=== PATIENT | male | born 1960 | race African-American/Black ===

== ENCOUNTER 2017-01-03 08:51 | Emergency (ER) | payer OTHER, SELFPAY ==
[2017-01-03] MEDS ORDERED: HYDROcodone/Acetaminophen 10/325 mg Tablet ONE (10:09)
[2017-01-03] MEDS ORDERED: Naproxen 500 MG TAB ONE (10:10)
== END 2017-01-03 10:10 | disposition home or self-care (01) ==
LOC: MADERS 08:51
DX: K40.90 Unilateral inguinal hernia, without obstruction or gangrene, not specified as recurrent (principal); I10 Essential (primary) hypertension; J45.909 Unspecified asthma, uncomplicated
CPT/HCPCS: 99283

== ENCOUNTER 2017-01-13 06:37 | Emergency (ER) | payer OTHER ==
[2017-01-13] MEDS ORDERED: Benzonatate 100 MG CAP ONE (06:59)
[2017-01-13] MEDS ORDERED: Naproxen 500 MG TAB ONE (06:59)
[2017-01-13] MEDS ORDERED: Ondansetron ODT 4 MG TAB ONE (06:59)
[2017-01-13] MEDS ORDERED: HYDROcodone/Acetaminophen 10/325 mg Tablet ONE (06:59)
[2017-01-13 07:29] LABS: Bilirubin Negative (Negative); Blood, Urine Negative (Negative); Clarity Clear (Clear); Glucose, Urine (Dipstick) Negative (Negative); Leukocyte Negative (Negative); Nitrite Negative (Negative); Protein, Urine (Dipstick) Negative (Neg-Trace); Urobilinogen 0.2 mg/dL (0.2-1.0)
[2017-01-13] MEDS ORDERED: predniSONE 20 MG TAB ONE (07:30)
[2017-01-13 07:44] LABS: Bacteria/HPF Rare-Few HPF (None Seen); RBC/HPF 0-3 HPF (0-3); Squamous Epithelial 0-3 HPF (0-3); WBC/HPF 0-3 HPF (0-3)
--- NOTE | 2017-01-13 07:53 | RAD ---
PORTABLE CHEST: HISTORY: Cough. COMPARISON: 09/01/16 study. FINDINGS: The heart size is within normal limits for portable technique. Mediastinal structures are unremarka ble. The lungs are clear of infiltrative process. IMPRESSION: No active intrathoracic disease. Stable chest. POS: [facility]
== END 2017-01-13 07:58 | disposition home or self-care (01) ==
LOC: MADERS 06:37
DX: J45.909 Unspecified asthma, uncomplicated (principal); R30.0 Dysuria; I10 Essential (primary) hypertension
CPT/HCPCS: 71010; 81003; 81015; 87086; 94640; J7506; J7620; Q0162

== ENCOUNTER 2017-02-22 06:39 | Emergency (ER) | payer OTHER, SELFPAY ==
[2017-02-22] MEDS ORDERED: Ondansetron ODT 4 MG TAB ONE (07:17)
[2017-02-22] MEDS ORDERED: traMADol HCl 50 MG TAB ONE ×2 (07:17)
--- NOTE | 2017-02-22 08:12 | RAD ---
EXAM: ONE VIEW PELVIS: HISTORY: Fell from a tall ladder last night. Posttraumatic pain. FINDINGS: Sacroiliac joints are patent and symmetric. Sacral alae are preserved. Bony pelvis is intact. Sym metric hip joints. Contour of the left and right femoral head are maintained on the single projecti on. No fracture. IMPRESSION: No fracture. POS: [facility]
--- NOTE | 2017-02-22 08:13 | RAD ---
EXAM: RIGHT HIP 2 VIEWS: HISTORY: The patient fell from a ladder. Posttraumatic injury. Pain. FINDINGS: Contour of the right femoral head is maintained. Joint space is preserved. No fracture. IMPRESSION: No fracture. POS: [facility]
--- NOTE | 2017-02-22 08:15 | RAD ---
LUMBAR SPINE 3 VIEWS: HISTORY: Fall from a tall ladder last night. Posttraumatic pain. COMPARISON: None. FINDINGS: Five lumbar-type vertebral bodies. Mild loss of disk space height at L1-L2. There appears to be gr kimber I retrolisthesis of L1 upon L2. Vertebral body heights are maintained. No fracture. Mild degenerative change of the lower thoracic spine. IMPRESSION: 1. Mild degenerative change as above. 2. Nonspecific grade I retrolisthesis of L1 upon L2. Correlate clinically. CODE T POS: [facility]
== END 2017-02-22 07:45 | disposition home or self-care (01) ==
LOC: MADERS 06:39
DX: S33.5XXA Sprain of ligaments of lumbar spine, initial encounter (principal); M62.830 Muscle spasm of back; J45.909 Unspecified asthma, uncomplicated; I10 Essential (primary) hypertension; Z87.891 Personal history of nicotine dependence; W11.XXXA Fall on and from ladder, initial encounter
CPT/HCPCS: 72100; 72170; Q0162

== ENCOUNTER 2017-03-04 00:29 | Emergency (ER) | payer SELFPAY ==
[2017-03-04] MEDS ORDERED: Sulfameth/Trimethoprim DS 800-160mg TAB ONE (03:14)
[2017-03-04] MEDS ORDERED: Naproxen 500 MG TAB ONE (03:14)
[2017-03-04] MEDS ORDERED: HYDROcodone/Acetaminophen 10/325 mg Tablet ONE (03:14)
[2017-03-04] MEDS ORDERED: Cephalexin 500 MG CAP ONE (03:14)
== END 2017-03-04 03:19 | disposition home or self-care (01) ==
LOC: MADERS 00:29
DX: L02.31 Cutaneous abscess of buttock (principal); I10 Essential (primary) hypertension; J45.909 Unspecified asthma, uncomplicated; Z79.899 Other long term (current) drug therapy
CPT/HCPCS: 99282

== ENCOUNTER 2017-04-29 08:57 | Emergency (ER) | payer OTHER ==
[2017-04-29 09:55] LABS: Bilirubin Negative (Negative); Blood, Urine Negative (Negative); Clarity Clear (Clear); Glucose, Urine (Dipstick) Negative (Negative); Leukocyte Negative (Negative); Nitrite Negative (Negative); Protein, Urine (Dipstick) Negative (Neg-Trace); Urobilinogen 0.2 mg/dL (0.2-1.0)
--- NOTE | 2017-04-29 10:33 | RAD ---
CHEST 1 VIEW ABDOMEN 2 VIEWS: Date: 04/29/17 HISTORY: Constipation. Abdomen pain. FINDINGS: The cardiac silhouette and pulmonary vasculature are unremarkable. Lungs are hyperinflated. There is no confluent air space consolidation or evidence of free subdiaphragmatic gas. Nipple shadow overli es the right base. Moderate amount of stool is present throughout the colon and rectum. Nondilated gas-filled loops of small bowel are present throughout the abdomen. There are no differential air fluid levels or eviden ce of free intraperitoneal gas. Phleboliths project over the pelvis. IMPRESSION: 1. COPD. 2. Nonspecific bowel gas pattern. POS: [facility]
== END 2017-04-29 11:05 | disposition home or self-care (01) ==
LOC: MADERS 08:57
DX: K59.00 Constipation, unspecified (principal); I10 Essential (primary) hypertension; J45.909 Unspecified asthma, uncomplicated
CPT/HCPCS: 74022; 81003

== ENCOUNTER 2017-06-07 08:40 | Emergency (ER) | payer MEDICAID ==
[2017-06-07] MEDS ORDERED: HYDROcodone/Acetaminophen 10/325 mg Tablet ONE (09:00)
[2017-06-07] MEDS ORDERED: Cyclobenzaprine 10 MG TAB ONE (09:00)
[2017-06-07] MEDS ORDERED: Acetaminophen 325 MG TAB ONE ×2 (09:03)
== END 2017-06-07 09:21 | disposition home or self-care (01) ==
LOC: MADERS 08:40
DX: S30.0XXA Contusion of lower back and pelvis, initial encounter (principal); S30.1XXA Contusion of abdominal wall, initial encounter; I10 Essential (primary) hypertension; J45.909 Unspecified asthma, uncomplicated; W18.30XA Fall on same level, unspecified, initial encounter
CPT/HCPCS: 99283

== ENCOUNTER 2017-07-01 14:33 | Emergency (ER) | payer MEDICAID ==
[2017-07-01] MEDS ORDERED: HYDROcodone/Acetaminophen 10/325 mg Tablet ONE (15:14)
== END 2017-07-01 15:20 | disposition home or self-care (01) ==
LOC: MADERS 14:33
DX: K40.90 Unilateral inguinal hernia, without obstruction or gangrene, not specified as recurrent (principal); I10 Essential (primary) hypertension; J45.909 Unspecified asthma, uncomplicated; Z79.891 Long term (current) use of opiate analgesic
CPT/HCPCS: 99283

== ENCOUNTER 2017-09-08 10:21 | Emergency (ER) | payer OTHER ==
[2017-09-08] MEDS ORDERED: traMADol HCl 50 MG TAB ONE (10:47)
== END 2017-09-08 10:50 | disposition home or self-care (01) ==
LOC: MADERS 10:21
DX: M10.9 Gout, unspecified (principal); I10 Essential (primary) hypertension; J45.909 Unspecified asthma, uncomplicated
CPT/HCPCS: 99283

== ENCOUNTER 2017-09-20 20:37 | Emergency (ER) | payer OTHER ==
[2017-09-20] MEDS ORDERED: HYDROcodone/Acetaminophen 10/325 mg Tablet ONE (21:14)
[2017-09-20] MEDS ORDERED: Dexamethasone 4 MG TAB ONE (21:14)
[2017-09-20] MEDS ORDERED: Ibuprofen 800 MG TAB ONE (21:14)
== END 2017-09-20 21:20 | disposition home or self-care (01) ==
LOC: MADERS 20:37
DX: M25.522 Pain in left elbow (principal); G89.29 Other chronic pain; I10 Essential (primary) hypertension; J45.909 Unspecified asthma, uncomplicated; M10.9 Gout, unspecified
CPT/HCPCS: 99283; J8540

== ENCOUNTER 2017-11-24 08:20 | Emergency (ER) | payer MEDICAID | END 2017-11-24 09:15 | disposition home or self-care (01) | LOC: MADERS 08:20 | DX: J11.1 Influenza due to unidentified influenza virus with other respiratory manifestations (principal); I10 Essential (primary) hypertension; J45.909 Unspecified asthma, uncomplicated; M10.9 Gout, unspecified | CPT/HCPCS: 99283 ==

== ENCOUNTER 2018-05-18 08:22 | Emergency (ER) | payer MEDICAID ==
[2018-05-18] MEDS ORDERED: Metoclopramide HCl 10 MG/2 ML VIAL ONE (08:50)
[2018-05-18] MEDS ORDERED: Ondansetron ODT 4 MG TAB ONE (08:50)
[2018-05-18] MEDS ORDERED: diphenhydrAMINE 50 MG/ML VIAL ONE (08:50)
[2018-05-18] MEDS ORDERED: Ketorolac Tromethamine 30 MG/ML VIAL ONE (08:50)
[2018-05-18] MEDS ORDERED: Sodium Chloride 0.9% 1,000 ML BAG ONE (09:04)
[2018-05-18 09:07] LABS: #Basophils 0.1 thou/uL (0.0-0.2); #Eosinphils 0.2 thou/uL (0.0-0.7); #Lymphocytes 0.8 thou/uL (1.20-3.40); #Monocytes 0.4 thou/uL (0.11-0.59); #Neutrophils 4.4 thou/uL (1.40-6.50); %Basophils 1.9 % (0.0-1.0); %Eosinophils 2.7 % (0.0-10.0); %Lymphocytes 14.3 % (21.0-51.0); %Monocytes 6.8 % (0.0-10.0); %Neutrophils 74.3 % (42.0-75.0); Hemoglobin 14.1 g/dL (14.0-18.0); Mean Corpuscular HGB CONC 31.9 g/dL (32.0-36.0); Mean Corpuscular Hemoglobin 28.2 pg (27.0-31.0); Mean Corpuscular Volume 88.3 fL (78.0-98.0); Mean Platelet Volume 9.1 fL (7.4-10.4); Platelet Count 143 thou/uL (130-400); RBC Distribution Width 12.9 % (11.5-14.5); White Blood Cell (WBC) Count 5.9 thou/uL (4.8-10.8)
[2018-05-18] MEDS ORDERED: Metoclopramide HCl 10 MG TAB ONE (09:08)
[2018-05-18 09:23] LABS: ALT (SGPT) 13 U/L (8-55); AST (SGOT) 13 U/L (5-34); Albumin 3.5 g/dL (3.5-5.0); Alkaline Phosphatase 95 U/L (40-150); Anion Gap 14 mmol/L (10-20); BUN (Urea Nitrogen) 9 mg/dL (8.4-25.7); Bilirubin, Total 0.6 mg/dL (0.2-1.2); Calc. Creatinine Clearance 0 mL/min (70-130); Calcium 8.7 mg/dL (7.8-10.44); Estimated GFR-MDRD Greater than 90; Glucose 88 mg/dL (70-105); Protein, Total 6.5 g/dL (6.0-8.3)
[2018-05-18 09:54] LABS: Carbon Dioxide 24 mmol/L (22-29); Chloride 107 mmol/L (98-107); Sodium 141 mmol/L (136-145)
== END 2018-05-18 10:45 | disposition home or self-care (01) ==
LOC: MADERS 08:22
DX: R51 Headache (principal); M10.9 Gout, unspecified; J45.909 Unspecified asthma, uncomplicated; I10 Essential (primary) hypertension
CPT/HCPCS: 80053; 85025; 96361; 96374; 96375; J1200; J1885; J2765; J7050; Q0162

== ENCOUNTER 2018-10-06 08:45 | Outpatient (CLI) | payer OTHER | END 2018-10-06 08:46 | disposition home or self-care (01) | LOC: MADRAD 08:45 | PROVIDERS: ATTEND Family Medicine | DX: I10 Essential (primary) hypertension (principal) ==

== ENCOUNTER 2018-12-11 10:36 | Emergency (ER) | payer BC, OTHER ==
[2018-12-11] MEDS ORDERED: Ibuprofen 800 MG TAB ONE (11:29)
[2018-12-11] MEDS ORDERED: Cyclobenzaprine 10 MG TAB ONE (11:29)
== END 2018-12-11 11:55 | disposition home or self-care (01) ==
LOC: MADERS 10:36
DX: M54.2 Cervicalgia (principal); I10 Essential (primary) hypertension; J45.909 Unspecified asthma, uncomplicated; M10.9 Gout, unspecified; Z79.899 Other long term (current) drug therapy; Z79.51 Long term (current) use of inhaled steroids
CPT/HCPCS: 93005

== ENCOUNTER 2018-12-21 08:13 | Outpatient (CLI) | payer BC, OTHER ==
--- NOTE | 2018-12-21 09:33 | RAD ---
CERVICAL SPINE 4 VIEWS: HISTORY: Cervicalgia. COMPARISON: None. FINDINGS: No acute fracture or malalignment. There is multilevel air in the disk spaces from C3-C7 with anteri or and posterior disk-osteophyte complexes. There is height loss of the anterior superior C3 vertebral body. There is narrowing of the bilateral C3-C5 neural foramina due to primarily posterior disk-osteophyte complexes and uncinate process hype rtrophy. The mandible is intact. Open mouth odontoid view appears normal. IMPRESSION: Moderate degenerative disease centered at C3-C5. POS: [facility]
== END 2018-12-21 08:14 | disposition home or self-care (01) ==
LOC: MADRAD 08:13
PROVIDERS: ATTEND Family Medicine
DX: M54.2 Cervicalgia (principal); M50.31 Other cervical disc degeneration, high cervical region
CPT/HCPCS: 72050

== ENCOUNTER 2019-03-31 14:30 | Emergency (ER) | payer OTHER ==
[~2019-03-31 14:30] MED LIST: Iopamidol 370 76% 200 ML VIAL ONE; Sodium Chloride 0.9% 100 ML BAG ONE
--- NOTE | 2019-03-31 15:07 | RAD ---
Portable chest: HISTORY: Syncope COMPARISON: none FINDINGS: Lung kohler are clear. Heart and mediastinum appear unremarkable. Vascularity is normal. Visualized osseous structures unremarkable. IMPRESSION: No acute finding
[2019-03-31 15:13] LABS: #Basophils 0.1 thou/uL (0.0-0.2); #Eosinphils 0.1 thou/uL (0.0-0.7); #Lymphocytes 1.3 thou/uL (1.20-3.40); #Monocytes 0.6 thou/uL (0.11-0.59); #Neutrophils 3.6 thou/uL (1.40-6.50); %Basophils 2.2 % (0.0-1.0); %Eosinophils 1.1 % (0.0-10.0); %Lymphocytes 22.2 % (21.0-51.0); %Monocytes 11.1 % (0.0-10.0); %Neutrophils 63.4 % (42.0-75.0); Hemoglobin 14.7 g/dL (14.0-18.0); Mean Corpuscular HGB CONC 32.3 g/dL (32.0-36.0); Mean Corpuscular Volume 89.9 fL (78.0-98.0); Mean Platelet Volume 9.2 fL (7.4-10.4); Platelet Count 181 thou/uL (130-400); RBC Distribution Width 12.4 % (11.5-14.5); Red Blood Cell (RBC) Count 5.06 mill/uL (4.70-6.10); White Blood Cell (WBC) Count 5.7 thou/uL (4.8-10.8)
[2019-03-31 15:31] LABS: ALT (SGPT) 14 U/L (8-55); AST (SGOT) 15 U/L (5-34); Albumin 3.9 g/dL (3.5-5.0); Alkaline Phosphatase 76 U/L (40-150); Anion Gap 13 mmol/L (10-20); BUN (Urea Nitrogen) 16 mg/dL (8.4-25.7); Bilirubin, Total 1.5 mg/dL (0.2-1.2); Calc. Creatinine Clearance 0 mL/min (70-130); Calcium 8.4 mg/dL (7.8-10.44); Carbon Dioxide 22 mmol/L (22-29); Chloride 111 mmol/L (98-107); Estimated GFR-MDRD 61; Globulin 2.9 g/dL (2.4-3.5); Glucose 89 mg/dL (70-105); Magnesium 2.3 mg/dL (1.6-2.6); Potassium 3.5 mmol/L (3.5-5.1); Protein, Total 6.8 g/dL (6.0-8.3); Sodium 142 mmol/L (136-145)
--- NOTE | 2019-03-31 15:58 | CT ---
CT head without contrast: Multiple axial tomograms obtained through the head without IV enhancement. INDICATIONS: Syncope COMPARISON: None FINDINGS: Ventricles have normal size and position. No evidence of intracranial mass, hemorrhage, edema, or infarct. Visualized sinuses and mastoids appear clear. Bony calvarium appears unremarkable. IMPRESSION: No acute finding
--- NOTE | 2019-03-31 16:03 | CT ---
CTA chest with contrast: Multiple axial tomograms obtained through the chest following a pulmonary angiogram protocol with mul tiplanar reconstruction and 3-D postprocessing. INDICATIONS: Dyspnea and chest pain. Assess for pulmonary embolus. Syncope COMPARISON: None FINDINGS: Pulmonary arteries show adequate opacification. No evidence of pulmonary embolus identified. Thoracic aorta is unremarkable. No evidence of dissection. Mediastinum appears unremarkable. No adenopathy. Lung kohler show no evidence of infiltrate. There are chronic lung parenchymal changes. Interstitial thickening is prominent in the lung bases. Images through the upper abdomen appear unremarkable. Soft tissues of the thorax appear unremarkable. Osseous structures of the thorax appear unremarkable. IMPRESSION: 1. No evidence of pulmonary embolus 2. No acute lung process.
== END 2019-03-31 17:04 | disposition left against medical advice (07) ==
LOC: MADERS 14:30
DX: I45.81 Long QT syndrome (principal); N17.9 Acute kidney failure, unspecified; E87.70 Fluid overload, unspecified; I10 Essential (primary) hypertension; J45.909 Unspecified asthma, uncomplicated; M10.9 Gout, unspecified; F32.9 Major depressive disorder, single episode, unspecified; Z79.899 Other long term (current) drug therapy; Z79.51 Long term (current) use of inhaled steroids
CPT/HCPCS: 36415; 70450; 71045; 71275; 80053; 83735; 83880; 84443; 84484; 85025; 93005; J3490

== ENCOUNTER 2019-04-07 12:09 | Emergency (ER) | payer OTHER ==
[2019-04-07] MEDS ORDERED: diphenhydrAMINE 50 MG/ML VIAL ONE (12:29)
== END 2019-04-07 12:57 | disposition home or self-care (01) ==
LOC: MADERS 12:09
DX: L29.9 Pruritus, unspecified (principal); I10 Essential (primary) hypertension; J45.909 Unspecified asthma, uncomplicated; M10.9 Gout, unspecified; F32.9 Major depressive disorder, single episode, unspecified; Z79.899 Other long term (current) drug therapy; Z79.51 Long term (current) use of inhaled steroids
CPT/HCPCS: 96374; J1200

== ENCOUNTER 2019-04-27 09:00 | Outpatient (CLI) | payer OTHER ==
--- NOTE | 2019-04-27 09:24 | RAD ---
EXAM: 3 views of the right shoulder HISTORY: Shoulder pain COMPARISON: None FINDINGS: There is no evidence of acute fracture or dislocation. No degenerative changes are present. No soft tissue swelling is seen. The visualized thorax is unremarkable. IMPRESSION: No evidence of acute osseous abnormality.
== END 2019-04-27 09:01 | disposition home or self-care (01) ==
LOC: MADRAD 09:00
PROVIDERS: ATTEND Family Medicine
DX: M25.511 Pain in right shoulder (principal)

== ENCOUNTER 2019-05-29 11:49 | Emergency (ER) | payer OTHER ==
[2019-05-29] MEDS ORDERED: Phenazopyridine HCl 97.5 MG TABLET ONE (12:19)
[2019-05-29] MEDS ORDERED: Nitrofurantoin Monohyd/M-Cryst 100 MG CAP ONE (12:19)
[2019-05-29 12:20] LABS: Clarity Hazy (Clear)
[2019-05-29 12:22] LABS: Glucose, Urine (Dipstick) Unable to Interpret mg/dL (Negative); Leukocyte Unable to Interpret (Negative); Nitrite Unable to Interpret (Negative); Protein, Urine (Dipstick) Unable to Interpret mg/dL (Neg-Trace)
[2019-05-29 12:23] LABS: Bilirubin Unable to Interpret (Negative); Blood, Urine Large (Negative); RBC/HPF Greater than 50 HPF (0-3)
[2019-05-29 12:24] LABS: Bacteria/HPF Rare-Few HPF (None Seen); Squamous Epithelial 0-3 HPF (0-3)
== END 2019-05-29 12:53 | disposition home or self-care (01) ==
LOC: MADERS 11:49
DX: N30.01 Acute cystitis with hematuria (principal); I10 Essential (primary) hypertension; J45.909 Unspecified asthma, uncomplicated; M10.9 Gout, unspecified; F32.9 Major depressive disorder, single episode, unspecified; Z79.899 Other long term (current) drug therapy; Z79.51 Long term (current) use of inhaled steroids
CPT/HCPCS: 81003; 81015; 87086; 99283

== ENCOUNTER 2019-07-28 00:06 | Emergency (ER) | payer OTHER ==
[2019-07-28] MEDS ORDERED: Nitroglycerin 0.4 MG TAB 1 EACH ONE (00:21)
[2019-07-28 00:42] LABS: #Basophils 0.1 thou/uL (0.0-0.2); #Eosinphils 0.2 thou/uL (0.0-0.7); #Lymphocytes 1.3 thou/uL (1.20-3.40); #Monocytes 0.5 thou/uL (0.11-0.59); #Neutrophils 2.8 thou/uL (1.40-6.50); %Basophils 2.2 % (0.0-1.0); %Eosinophils 3.6 % (0.0-10.0); %Lymphocytes 26.4 % (21.0-51.0); %Monocytes 9.4 % (0.0-10.0); %Neutrophils 58.4 % (42.0-75.0); Hemoglobin 12.9 g/dL (14.0-18.0); Mean Corpuscular HGB CONC 32.8 g/dL (32.0-36.0); Mean Corpuscular Hemoglobin 29.2 pg (27.0-31.0); Mean Platelet Volume 8.6 fL (7.4-10.4); Platelet Count 132 thou/uL (130-400); RBC Distribution Width 13.5 % (11.5-14.5); Red Blood Cell (RBC) Count 4.42 mill/uL (4.70-6.10); White Blood Cell (WBC) Count 4.8 thou/uL (4.8-10.8)
[2019-07-28 00:53] LABS: ALT (SGPT) 18 U/L (8-55); AST (SGOT) 14 U/L (5-34); Alkaline Phosphatase 101 U/L (40-150); Anion Gap 12 mmol/L (10-20); BUN (Urea Nitrogen) 12 mg/dL (8.4-25.7); Bilirubin, Total 0.4 mg/dL (0.2-1.2); Calc. Creatinine Clearance 0 mL/min (70-130); Calcium 8.7 mg/dL (7.8-10.44); Carbon Dioxide 26 mmol/L (22-29); Chloride 105 mmol/L (98-107); Estimated GFR-MDRD 89; Globulin 2.7 g/dL (2.4-3.5); Glucose 108 mg/dL (70-105); Protein, Total 6.7 g/dL (6.0-8.3); Sodium 139 mmol/L (136-145)
--- NOTE | 2019-07-28 09:12 | RAD ---
AP CHEST: Date: 07/28/19 INDICATION: Chest pain. FINDINGS: Lungs are clear. Heart and mediastinum unremarkable. IMPRESSION: No acute findings. POS: [facility]
== END 2019-07-28 01:50 | disposition short-term general hospital (02) ==
LOC: EEVIPCON 00:06 → MADERS 00:06
DX: R00.1 Bradycardia, unspecified (principal); I10 Essential (primary) hypertension; J45.909 Unspecified asthma, uncomplicated; M10.9 Gout, unspecified; F32.9 Major depressive disorder, single episode, unspecified; Z79.899 Other long term (current) drug therapy; Z79.51 Long term (current) use of inhaled steroids
CPT/HCPCS: 71045; 80053; 83880; 84484; 85025; 93005; 94760

== ENCOUNTER 2019-08-02 13:19 | Emergency (ER) | payer OTHER ==
--- NOTE | 2019-08-02 14:07 | RAD ---
XR Chest 1 View Portable History: Low blood pressure Comparison: Radiograph July 28, 2019 Findings: Heart size is enlarged. No significant effusion or edema. No pneumothorax. Interposition of bowel between the left hemidiaphragm the spleen. No acute osseous abnormality. Impression: Cardiomegaly otherwise no acute intrathoracic abnormality.
[2019-08-02 14:13] LABS: #Basophils 0.1 thou/uL (0.0-0.2); #Eosinphils 0.1 thou/uL (0.0-0.7); #Monocytes 0.4 thou/uL (0.11-0.59); #Neutrophils 2.3 thou/uL (1.40-6.50); %Basophils 2.6 % (0.0-1.0); %Eosinophils 3.5 % (0.0-10.0); %Lymphocytes 25.9 % (21.0-51.0); %Monocytes 10.1 % (0.0-10.0); %Neutrophils 57.9 % (42.0-75.0); Hemoglobin 13.8 g/dL (14.0-18.0); Mean Corpuscular HGB CONC 31.4 g/dL (32.0-36.0); Mean Corpuscular Hemoglobin 28.7 pg (27.0-31.0); Mean Corpuscular Volume 91.3 fL (78.0-98.0); Mean Platelet Volume 8.6 fL (7.4-10.4); Platelet Count 153 thou/uL (130-400); RBC Distribution Width 13.7 % (11.5-14.5); Red Blood Cell (RBC) Count 4.81 mill/uL (4.70-6.10)
[2019-08-02 14:28] LABS: ALT (SGPT) 14 U/L (8-55); AST (SGOT) 11 U/L (5-34); Albumin 4.1 g/dL (3.5-5.0); Alkaline Phosphatase 88 U/L (40-150); Anion Gap 12 mmol/L (10-20); BUN (Urea Nitrogen) 15 mg/dL (8.4-25.7); Bilirubin, Total 0.6 mg/dL (0.2-1.2); Calc. Creatinine Clearance 0 mL/min (70-130); Calcium 9.2 mg/dL (7.8-10.44); Carbon Dioxide 32 mmol/L (22-29); Chloride 104 mmol/L (98-107); Estimated GFR-MDRD 73; Globulin 3.2 g/dL (2.4-3.5); Glucose 91 mg/dL (70-105); Potassium 5.1 mmol/L (3.5-5.1); Protein, Total 7.3 g/dL (6.0-8.3); Sodium 143 mmol/L (136-145)
== END 2019-08-02 14:47 ==
LOC: EEVIPCON 13:19 → MADERS 13:19
DX: R00.1 Bradycardia, unspecified (principal); I10 Essential (primary) hypertension; M10.9 Gout, unspecified; F32.9 Major depressive disorder, single episode, unspecified; F17.220 Nicotine dependence, chewing tobacco, uncomplicated; Z79.899 Other long term (current) drug therapy; Z79.82 Long term (current) use of aspirin
CPT/HCPCS: 71045; 80053; 83880; 84484; 85025; 93005

== ENCOUNTER 2020-07-11 14:17 | Emergency (ER) | payer MEDICAID, OTHER ==
[2020-07-11 15:11] LABS: #Basophils 0.1 thou/uL (0.0-0.2); #Eosinphils 0.2 thou/uL (0.0-0.7); #Lymphocytes 1.8 thou/uL (1.20-3.40); #Monocytes 0.6 thou/uL (0.11-0.59); #Neutrophils 3.3 thou/uL (1.40-6.50); %Basophils 1.7 % (0.0-1.0); %Eosinophils 3.8 % (0.0-10.0); %Lymphocytes 29.9 % (21.0-51.0); %Neutrophils 54.6 % (42.0-75.0); Hemoglobin 14.9 g/dL (14.0-18.0); Mean Corpuscular HGB CONC 31.8 g/dL (32.0-36.0); Mean Corpuscular Hemoglobin 28.6 pg (27.0-31.0); Mean Corpuscular Volume 89.7 fL (78.0-98.0); Mean Platelet Volume 9.9 fL (7.4-10.4); Platelet Count 192 thou/uL (130-400); RBC Distribution Width 13.4 % (11.5-14.5); Red Blood Cell (RBC) Count 5.23 mill/uL (4.70-6.10)
[2020-07-11 15:26] LABS: ALT (SGPT) 17 U/L (8-55); AST (SGOT) 12 U/L (5-34); Albumin 3.8 g/dL (3.5-5.0); Alkaline Phosphatase 93 U/L (40-110); Anion Gap 15 mmol/L (10-20); BUN (Urea Nitrogen) 24 mg/dL (8.4-25.7); Bilirubin, Total 0.6 mg/dL (0.2-1.2); Calc. Creatinine Clearance 0 mL/min (70-130); Calcium 8.6 mg/dL (7.8-10.44); Carbon Dioxide 24 mmol/L (22-29); Chloride 105 mmol/L (98-107); Estimated GFR-MDRD 69; Globulin 3.2 g/dL (2.4-3.5); Glucose 107 mg/dL (70-105); Magnesium 2.2 mg/dL (1.6-2.6); Potassium 3.6 mmol/L (3.5-5.1); Sodium 140 mmol/L (136-145)
== END 2020-07-11 16:53 | disposition home or self-care (01) ==
LOC: MADERS 14:17
DX: I49.3 Ventricular premature depolarization (principal); F32.9 Major depressive disorder, single episode, unspecified; I10 Essential (primary) hypertension; M10.9 Gout, unspecified; F17.220 Nicotine dependence, chewing tobacco, uncomplicated; Z79.899 Other long term (current) drug therapy
CPT/HCPCS: 80053; 83735; 84484; 85025; 93005

== ENCOUNTER 2021-04-10 08:03 | Outpatient (CLI) | payer OTHER ==
[2021-04-10 08:42] LABS: ALT (SGPT) 11 U/L (8-55); AST (SGOT) 12 U/L (5-34); Albumin 4.1 g/dL (3.5-5.0); Alkaline Phosphatase 92 U/L (40-110); Anion Gap 12 mmol/L (10-20); BUN (Urea Nitrogen) 12 mg/dL (8.4-25.7); Bilirubin, Total 2.1 mg/dL (0.2-1.2); Calc. Creatinine Clearance 0 mL/min (70-130); Calcium 8.6 mg/dL (7.8-10.44); Carbon Dioxide 27 mmol/L (22-29); Cardiac Risk 2.7 (Less than 4.5); Chloride 106 mmol/L (98-107); Cholesterol 147 mg/dl (< 200 Desired); Globulin 3.2 g/dL (2.4-3.5); Glucose 98 mg/dL (70-105); HDL Cholesterol 54 mg/dL (>60 Neg Risk); LDL Cholesterol, Calculated 81 mg/dL; Potassium 3.3 mmol/L (3.5-5.1); Protein, Total 7.3 g/dL (6.0-8.3); Sodium 142 mmol/L (136-145); Triglycerides 59 mg/dL (Less than 150)
== END 2021-04-10 08:04 | disposition home or self-care (01) ==
LOC: MADLABBHPM 08:03
PROVIDERS: ATTEND Family Medicine
DX: E78.5 Hyperlipidemia, unspecified (principal); E53.8 Deficiency of other specified B group vitamins
CPT/HCPCS: 36415; 80053; 80061; 82607; 82746

== ENCOUNTER 2021-04-17 07:42 | Outpatient (CLI) | payer OTHER ==
[2021-04-17 08:43] LABS: ALT (SGPT) 18 U/L (8-55); AST (SGOT) 14 U/L (5-34); Albumin 4.1 g/dL (3.5-5.0); Alkaline Phosphatase 89 U/L (40-110); Anion Gap 15 mmol/L (10-20); BUN (Urea Nitrogen) 19 mg/dL (8.4-25.7); Calc. Creatinine Clearance 0 mL/min (70-130); Calcium 8.8 mg/dL (7.8-10.44); Carbon Dioxide 22 mmol/L (22-29); Chloride 106 mmol/L (98-107); Globulin 3.2 g/dL (2.4-3.5); Glucose 139 mg/dL (70-105); Protein, Total 7.3 g/dL (6.0-8.3); Sodium 140 mmol/L (136-145)
[2021-04-17 10:27] LABS: Potassium 2.8 mmol/L (3.5-5.1)
== END 2021-04-17 07:43 | disposition home or self-care (01) ==
LOC: MADLAB 07:42
PROVIDERS: ATTEND Family Medicine
DX: E80.6 Other disorders of bilirubin metabolism (principal)
CPT/HCPCS: 36415; 80053

== ENCOUNTER 2021-04-18 10:55 | Outpatient (CLI) | payer OTHER ==
[2021-04-18 11:18] LABS: Anion Gap 15 mmol/L (10-20); BUN (Urea Nitrogen) 18 mg/dL (8.4-25.7); Calc. Creatinine Clearance 0 mL/min (70-130); Calcium 8.9 mg/dL (7.8-10.44); Carbon Dioxide 25 mmol/L (22-29); Chloride 107 mmol/L (98-107); Glucose 103 mg/dL (70-105); Sodium 143 mmol/L (136-145)
== END 2021-04-18 10:56 | disposition home or self-care (01) ==
LOC: MADLAB 10:55
PROVIDERS: ATTEND Family Medicine
DX: E87.6 Hypokalemia (principal)
CPT/HCPCS: 36415; 80048

== ENCOUNTER 2021-05-25 07:45 | Outpatient (CLI) | payer OTHER ==
[2021-05-25 08:44] LABS: Anion Gap 12 mmol/L (10-20); BUN (Urea Nitrogen) 15 mg/dL (8.4-25.7); Calc. Creatinine Clearance 0 mL/min (70-130); Carbon Dioxide 27 mmol/L (22-29); Chloride 105 mmol/L (98-107); Glucose 109 mg/dL (70-105); Potassium 3.7 mmol/L (3.5-5.1); Sodium 140 mmol/L (136-145)
== END 2021-05-25 07:46 | disposition home or self-care (01) ==
LOC: MADLAB 07:45
PROVIDERS: ATTEND Family Medicine
DX: E87.6 Hypokalemia (principal)
CPT/HCPCS: 36415; 80048

== ENCOUNTER 2021-07-29 07:31 | Emergency (ER) | payer OTHER ==
[2021-07-29] MEDS ORDERED: Lidocaine 1% 20 ML MDV ONE (08:30)
== END 2021-07-29 08:53 | disposition home or self-care (01) ==
LOC: MADERS 07:31
DX: L03.011 Cellulitis of right finger (principal); I10 Essential (primary) hypertension; J45.909 Unspecified asthma, uncomplicated; M10.9 Gout, unspecified; E78.5 Hyperlipidemia, unspecified; F17.220 Nicotine dependence, chewing tobacco, uncomplicated; Z79.899 Other long term (current) drug therapy
CPT/HCPCS: 10060

== ENCOUNTER 2022-11-14 05:10 | Emergency (ER) | payer OTHER ==
[2022-11-14] MEDS ORDERED: methylPREDNISolone Sod Succ/PF 125 MG/2 ML VIAL ONE (05:29)
[2022-11-14] MEDS ORDERED: Albuterol Sulfate 2.5 mg/3 ml Neb ONE (05:29)
[2022-11-14 05:52] LABS: Band 2 % (5-11); Eosinophils 4 % (0-10); Hemoglobin 15.6 g/dL (14.0-18.0); Lymphocytes 16 % (21-51); MDiff Complete? YES; Mean Corpuscular HGB CONC 32.3 g/dL (32.0-36.0); Mean Corpuscular Hemoglobin 29.1 pg (27.0-31.0); Mean Corpuscular Volume 89.9 fl (78.0-98.0); Mean Platelet Volume 9.8 fL (7.4-10.4); Monocytes 6 % (0-10); Neutrophil 72 % (42-75); Platelet Count 121 10x3/uL (130-400); Platelet Morphology Comment Appears Adequate; RBC Distribution Width 13.1 % (11.5-14.5); RBC Morphology Normal; Red Blood Cell (RBC) Count 5.35 mill/uL (4.70-6.10)
[2022-11-14 05:54] LABS: ALT (SGPT) 10 U/L (8-55); AST (SGOT) 15 U/L (5-34); Alkaline Phosphatase 88 U/L (40-110); Anion Gap 16 mmol/L (10-20); BUN (Urea Nitrogen) 11 mg/dL (8.4-25.7); Bilirubin, Total 0.7 mg/dL (0.2-1.2); Calc. Creatinine Clearance 0 mL/min (70-130); Calcium 8.9 mg/dL (7.8-10.44); Carbon Dioxide 24 mmol/L (22-29); Chloride 106 mmol/L (98-107); Estimated GFR 67; Globulin 3.6 g/dL (2.4-3.5); Glucose 107 mg/dL (70-105); Protein, Total 7.6 g/dL (6.0-8.3); Sodium 142 mmol/L (136-145)
== END 2022-11-14 06:55 | disposition home or self-care (01) ==
LOC: MADERS 05:10
DX: U07.1 COVID-19 (principal); J45.901 Unspecified asthma with (acute) exacerbation; E78.5 Hyperlipidemia, unspecified; I10 Essential (primary) hypertension; F17.220 Nicotine dependence, chewing tobacco, uncomplicated
CPT/HCPCS: 71045; 80053; 85025; 87804; 93005; 96374; J2930; J7611; J7620; U0003; U0005

== ENCOUNTER 2023-11-17 10:14 | Emergency (ER) | payer OTHER ==
[2023-11-17] MEDS ORDERED: predniSONE 20 MG TAB ONE (10:43)
[2023-11-17] MEDS ORDERED: predniSONE 10 MG TAB ONE (10:43)
[2023-11-17] MEDS ORDERED: Ipratropium/Albuterol 3 ML NEB ONE ×2 (10:43→11:44)
[2023-11-17 11:08] LABS: SARS-CoV-2 NAA Rapid Test Not Detected (NotDetected)
[2023-11-17] MEDS ORDERED: Amoxicillin/Potassium Clav 875 MG TAB ONE (11:12)
[2023-11-17] MEDS ORDERED: Azithromycin 250 MG TAB ONE (11:12)
== END 2023-11-17 11:31 ==
LOC: MADERS 10:14
DX: J18.9 Pneumonia, unspecified organism (principal); J45.901 Unspecified asthma with (acute) exacerbation; I10 Essential (primary) hypertension; F17.220 Nicotine dependence, chewing tobacco, uncomplicated; Z79.899 Other long term (current) drug therapy
CPT/HCPCS: 71045; 87804; 93005; J7512; J7620; U0002